=== PATIENT | male | born 1975 | race Two or more races ===

== ENCOUNTER → 2024-11-13 | Day surgery (SDC) | payer MEDICAID, SELFPAY ==
--- NOTE | 2024-11-12 12:05 | EKG_ITS ---
[facility] Test Date: 2024-11-12 Pat Name: VITALIY ALARCON Department: Room: - Gender: Male Office Services Manager: MICHEAL : 1975 Requested By: Brendan Arroyo Order Number: [id number] Reading MD: Brendan Arroyo Measurements Intervals [place] Rate: 71 P: 58 VA: 156 QRS: 65 QRSD: 86 T: -28 QT: 366 QTc: 399 Interpretive Statements SINUS RHYTHM MODERATE T-WAVE ABNORMALITY, CONSIDER ANTEROLATERAL ISCHEMIA [-0.1+ mV T WAVE IN V3-V6] MODERATE T-WAVE ABNORMALITY, CONSIDER INFERIOR ISCHEMIA [-0.1+ mV T WAVE IN II/aVF] No previous ECG available for comparison /store/S0/[id number].pdf
[2024-11-12 12:11] VITALS: BMI 36.7
[2024-11-12 13:03] LABS: Basophils # (Auto) 0.1 Thou/mm3 (0.0-0.2); Basophils % (Auto) 1 % (0-2.5); Eosinophils # (Auto) 0.1 Thou/mm3 (0.0-0.5); Eosinophils % (Auto) 1 % (0-10); Hematocrit 37.5 % (41.0-53.0); Immature Granulocytes % (Auto) 1 % (0-0); Immature Granulocytes Auto 0.05 Thou/mm3 (0.00-0.00); Lymphocytes # (Auto) 1.5 Thou/mm3 (1.0-4.8); Lymphocytes % (Auto) 26 % (10-50); Mean Corpuscular HGB Conc 34.7 g/dl (31.0-37.0); Mean Corpuscular Hemoglobin 29.5 pg (25.0-35.0); Mean Corpuscular Volume 85 fL (80-100); Monocytes # (Auto) 0.5 Thou/mm3 (0.0-0.8); Monocytes % (Auto) 8 % (0-12); Neutrophils # (Auto) 3.7 Thou/mm3 (1.8-7.7); Neutrophils % (Auto) 63 % (37-80); Nucleated Red Blood Cell % 0 /100 WBC (0); Platelet Count 290 Thou/mm3 (140-440); RDW Standard Deviation 39.3 fL (35.1-43.9); White Blood Count 5.9 Thou/mm3 (3.8-10.6)
[2024-11-12 13:29] LABS: Alanine Aminotransferase 29 U/L (10-49); Albumin, Serum 4.6 gm/dL (3.5-5.0); Alkaline Phosphatase 70 U/L (46-116); Anion Gap 10 (7-16); Aspartate Amino Transferase 25 U/L (0-34); BUN/Creatinine Ratio 11 Ratio (12-20); Bilirubin,Total 0.3 mg/dL (0.3-1.2); Blood Urea Nitrogen 13 mg/dL (9-23); Calcium 9.2 mg/dL (8.3-10.6); Calcium (Corrected) 9.2 mg/dL (8.5-10.1); Chloride 103 mMol/L (98-107); Creatinine (Component) 1.2 mg/dL (0.6-1.3); Estimated Creatinine Clearance 87.4 mL/min (>60); Globulin 2.3 gm/dL (2.3-3.5); Glucose 114 mg/dL (74-106); Osmolality,Calculated 276 (275-295); Potassium 3.8 mMol/L (3.4-5.1); Sodium 138 mMol/L (136-145); Total Protein 6.9 gm/dL (5.7-8.2); eGFR > 60 See Note
[2024-11-12 13:54] LABS: Partial Thromboplastin Time 26.5 Seconds (22.0-36.0); Prothrombin Time 10.5 Seconds (9.0-12.2)
--- NOTE | 2024-11-12 14:05 | ESHP_ITS ---
RE: VITALIY ALARCON : 1975 DATE OF ADMISSION: 11/13/2024 The patient came to my office on 11/12/2024 for detailed preop history and physical examination. HISTORY OF PRESENT COMPLAINT: The patient has got pain in the left shoulder. Range of motion is restricted. Pain is going on for a long period of time. Intensity of pain is 7-8/10. It is affecting his quality of life and activities of daily living. MRI scan confirms torn rotator cuff with significant DJD at AC joint. PAST MEDICAL HISTORY: No history of diabetes mellitus, high blood pressure, asthma, seizure, chest pain, myocardial infarction, or bleeding disorder. PAST SURGICAL HISTORY: Appendectomy done in 1994. DRUG HISTORY: The patient is taking atorvastatin, aspirin, ibuprofen. The patient also takes lisinopril. ALLERGIES: NIL KNOWN. FAMILY AND SOCIAL HISTORY: The patient denies smoking, drinking and is self-employed. PHYSICAL EXAMINATION: GENERAL: Normal built person. VITAL SIGNS: Pulse 81 per minute. Blood pressure is 134/80 mmHg. NECK: Soft, supple. No mass felt. Trachea is centrally placed. CARDIOVASCULAR SYSTEM: First and second heart sounds are normal. No murmur heard. RESPIRATORY SYSTEM: Bilateral vesicular breath sounds. CHEST: Clear. ABDOMEN: Soft. No mass felt. Bowel sounds present. RECTAL: Not indicated in this case. The patient is advised to see the family physician for rectal examination. EXTREMITIES: Left shoulder examination revealed 2+ tenderness at AC joint. Active range of motion is 0 to 80 degrees of abduction with 0 to 70 degrees of forward flexion. No further range of motion is possible. Internal rotation is severely restricted. DIAGNOSTIC DATA: MRI scan was obtained, which revealed full-thickness tear of the rotator cuff with significant DJD of the AC joint. Since the patient is symptomatic and MRI scan confirms full-thickness tear of the rotator cuff, therefore, left rotator cuff repair with Dominga procedure was discussed and advised. Risks of anesthesia was explained and that includes, but not limited to reaction to anesthetic agents, cardiac arrest and rarely, it might be fatal. Risk with operation includes infection and if that happens, the patient may need further surgical procedure. Other risks include delayed healing, wound dehiscence, etc. No guarantee is given regarding outcome of the procedure and/or relief of symptoms. Appropriate lab work is done. Surgery is booked for 11/13/2024. DT: 12:25:01 TT: 12:51:00 Ref: [id number] - TID: [id number]
--- NOTE | 2024-11-12 14:51 | SUR.PREOP ---
Pt notified to come in at 1200 tomorrow for surgery.
== END | disposition home or self-care (01) ==
LOC: S2EX 11:04
PROVIDERS: Anesthesiology; PCP Physician Assistant; Referring Provider Orthopaedic Surgery; Visit Provider Orthopaedic Surgery
PROC: (CPT 23412; principal; 2024-11-13 14:15)
DX: M75.122 Complete rotator cuff tear or rupture of left shoulder, not specified as traumatic (principal); Z53.9 Procedure and treatment not carried out, unspecified reason
CPT/HCPCS: 23412; 36415; 80048; 80053; 85025; 85610; 85730; 93005

== ENCOUNTER 2024-11-27 10:30 | Day surgery (SDC) | payer MEDICAID, SELFPAY ==
[2024-11-26 10:44] VITALS: BMI 35.4
[2024-11-26 11:55] LABS: Basophils # (Auto) 0.1 Thou/mm3 (0.0-0.2); Basophils % (Auto) 1 % (0-2.5); Eosinophils # (Auto) 0.1 Thou/mm3 (0.0-0.5); Eosinophils % (Auto) 1 % (0-10); Hematocrit 38.3 % (41.0-53.0); Hemoglobin 12.9 g/dL (13.5-16.0); Immature Granulocytes % (Auto) 1 % (0-0); Immature Granulocytes Auto 0.04 Thou/mm3 (0.00-0.00); Lymphocytes # (Auto) 1.5 Thou/mm3 (1.0-4.8); Lymphocytes % (Auto) 26 % (10-50); Mean Corpuscular HGB Conc 33.7 g/dl (31.0-37.0); Mean Corpuscular Hemoglobin 28.9 pg (25.0-35.0); Mean Corpuscular Volume 86 fL (80-100); Monocytes # (Auto) 0.4 Thou/mm3 (0.0-0.8); Monocytes % (Auto) 7 % (0-12); Neutrophils # (Auto) 3.7 Thou/mm3 (1.8-7.7); Neutrophils % (Auto) 64 % (37-80); Nucleated Red Blood Cell % 0 /100 WBC (0); Platelet Count 268 Thou/mm3 (140-440); RDW Standard Deviation 40.5 fL (35.1-43.9); Red Blood Count 4.46 Miln/mm3 (4.50-5.90); White Blood Count 5.8 Thou/mm3 (3.8-10.6)
[2024-11-26 12:07] LABS: Alanine Aminotransferase 35 U/L (10-49); Albumin, Serum 4.6 gm/dL (3.5-5.0); Albumin/Globulin Ratio 1.9 (1.2-2.2); Alkaline Phosphatase 69 U/L (46-116); Anion Gap 9 (7-16); Aspartate Amino Transferase 28 U/L (0-34); BUN/Creatinine Ratio 10 Ratio (12-20); Bilirubin,Total 0.4 mg/dL (0.3-1.2); Blood Urea Nitrogen 10 mg/dL (9-23); Calcium 9.5 mg/dL (8.3-10.6); Calcium (Corrected) 9.5 mg/dL (8.5-10.1); Carbon Dioxide 25.6 mMol/L (20.0-31.0); Chloride 106 mMol/L (98-107); Estimated Creatinine Clearance 106.3 mL/min (>60); Globulin 2.4 gm/dL (2.3-3.5); Glucose 108 mg/dL (74-106); Osmolality,Calculated 281 (275-295); Potassium 3.8 mMol/L (3.4-5.1); Sodium 141 mMol/L (136-145); eGFR > 60 See Note
--- NOTE | 2024-11-26 14:20 | SUR.PREOP ---
Pt notified to come in at 1130 tomorrow for surgery.
[2024-11-27] VITALS (16 sets, daily range): BP systolic 112–131; BP diastolic 72–92; PULSE 70–96; RESP 12–24; TEMP 36.4–36.8; O2SAT 94–99; BMI 34.9
--- NOTE | 2024-11-27 14:53 | PD.SUROPNT ---
Date of Procedure 11/27/24 Pre Op Diagnosis 1. Left rotator cuff tear 2 left shoulder impingement syndrome Post Op Diagnosis Same Procedure 1. Excision lateral end of the clavicle 2 excision coracoacromial ligament 3. Acromioplasty 4. Repair of rotator cuff 5. Manipulation under anesthesia Findings Patient had a small tear of the rotator cuff. There is DJD of the AC joint. The osteophytes were present at the lateral end of the acromial process and the anterior end of the acromial process. Procedure Description The patient was given general endotracheal anesthesia. Shoulder block was also given. Once satisfactory anesthesia was achieved patient was put in about 45?? sitting position with sandbag underneath the left shoulder blade. The part was thoroughly prepped and draped. A skin incision was made at the AC joint extending proximally towards the neck for a half inches and distally towards the arm for about couple of inches. Deeper dissection was carried out. Bleeding vessels were electrocoagulated as and when encountered. The soft tissue was reflected. Following that AC joint was exposed and AC joint was exposed. The deltoid muscle was reflected from the anterior and lateral aspect of the acromial process. There were 2 to 3 mm anterior osteophytes and 1 to 2 mm lateral osteophytes present over the acromial process. Following that a periosteal elevator was placed underneath the lateral end of the clavicle and lateral 3-4 mm was excised. The coracoacromial ligament was removed. About 2 mm of anterior acromial process +2 mm of osteophyte was excised. Similarly 1 to 2 mm on the lateral aspect along with the osteophytes was removed. With the help of curved osteotome the undersurface of the Acromial processes was chiseled out. That made more room between the superior surface of the head of the humerus and undersurface of the acromial process. Following that the rotator cuff was inspected. It revealed a small oval tear, however most of the fibers were attached to the greater tuberosity. Wound was irrigated with antibiotic solution every 4-5 minutes. The left shoulder was manipulated at this time. The rotator cuff tear was repaired with 2-0 Vicryl. 2 drill holes were made on the acromial process and deltoid muscle was stitched back to it. Some reinforcement sutures were placed. The subcutaneous tissue was then closed with the help of 2-0 Vicryl and 3-0 Vicryl in layers. The skin was closed with moiz. . After cleaning the wound with hydrogel proximal solution and sterile dressing was applied. Patient was taken to the recovery room in good condition. Estimated blood loss 20 mL. Prognosis in this case is good. Anesthesia GETA and other Pathology / specimen None Estimated Blood Loss 10 Surgeon Brendan Pryor MD Surgical Staff Operation Date: 11/27/24 13:30 Case Staff Anesthesiologist: Gabriel Godinez RN First Assistant: Bo Luna
--- NOTE | 2024-11-27 15:06 | SUR.PHASEI ---
150 Patient arrived to recovery resting comfortably in [facility], on oxygen 8L via oxy mask, breathing unlabored, vital signs stable, denies pain, dressing intact to left arm; sutures, adaptic, fluffs, abd, medipore tape with arm sling, no bleeding noted, patient able to move left arm, bilateral radial pulses present when palpated, patient has good circultation to left upper extremity; skin normal color for patient and warm to touch, report received from El WILDER and Dr. Godinez
--- NOTE | 2024-11-27 15:45 | SUR.PHASEII ---
1545 working with patient with incentive spirometer, patient oxygen level within normal limits however when he drifts to sleep oxygen level begins to decline, patient quickly arouse and began to take deep breaths, will continue to work with patient
--- NOTE | 2024-11-27 16:20 | SUR.PHASEII ---
[address] Godinez regarding patient sharing he has a history of sleep apnea however does not have a CPAP machine and is continuing to drift off to sleep and oxygen saturation decreasing into the 80's, patient arouses quickly and oxygen will increase, Dr. Godinez gave orders to keep patient in recovery and extra 2 hours for patient to wake up more, for patient to sleep in a recliner tonight, no narcotics tonight, only take Ibuprofen 600mg oral every 6hr as needed for pain, Tylenol 1000mg oral every 6hr as needed for pain, and continue to use incentive spirometer for the rest of the evening, will make patient aware of MD orders
--- NOTE | 2024-11-27 16:35 | SUR.PHASEII ---
1635:received report from MEÑO Alexis. pt alert and oriented to name,place and time. c/o 2/10 pain to left shoulder, but refused pain medication. no s/s of resp. distress or discomfort. patient using incentive spirometry, tolerated well. dressing to left shoulder clean, dry and intact, no bleeding noted. arm sling in place. positive CMS: positive pulse, cap refill less than 2 seconds and able to wiggle right fingers. tolerated soda well.
--- NOTE | 2024-11-27 16:35 | SUR.PHASEII ---
1635 Report given to Macie Gomes RN, patient sitting up in bed, talking with his , working with incentive spirometer, patient continues to drift to sleep, encourage to stay awake and work with incentive spirometer, vital signs stable, denies pain, dressing intact, no bleeding noted, drinking 7up; denies nausea
--- NOTE | 2024-11-27 18:16 | SUR.PHASEII ---
1815: pt eating his dinner, tolerated well.
--- NOTE | 2024-11-27 18:45 | SUR.PHASEII ---
1845: pt discharge to home via wheelchair. pt alert and oriented to name, place and time. denies any pain or discomfort. dressing to left shoulder clean, dry and intact. arm sling in place. positive CMS: positve pule, cap refill less than 2 seconds and able to wiggle right fingers. discharge instructions in Danish with telephone official court interpreter Stephanie BONILLA, verbalizes understanding. all belongings brought given back to patient.
--- NOTE | 2024-11-27 19:02 | SUR.PHASEII ---
ate all meal 100%.
== END 2024-11-27 18:45 | disposition home or self-care (01) ==
PROVIDERS: Anesthesiology; PCP Physician Assistant; Referring Provider Orthopaedic Surgery; Visit Provider Orthopaedic Surgery
PROC: (CPT 23412; principal; 2024-11-27 13:30)
DX: M75.102 Unspecified rotator cuff tear or rupture of left shoulder, not specified as traumatic (principal); M75.42 Impingement syndrome of left shoulder; M75.32 Calcific tendinitis of left shoulder
CPT/HCPCS: 23412; 23130; 23120; 36415; 80053; 85025; A4217; A4649; J0690; J1100; J1580; J1885; J2250; J2405; J2704; J2795; J3010; J3490; J7030